=== PATIENT | female | born 1985 | race Caucasian/White ===

== ENCOUNTER 2018-01-25 01:45 | Outpatient (CLI) | payer MEDICAID | END 2018-01-25 23:59 | disposition home or self-care (01) | LOC: DIABETIC 01:45 | PROVIDERS: ATTEND Surgery | DX: Z71.3 Dietary counseling and surveillance (principal); E66.9 Obesity, unspecified | CPT/HCPCS: 97802 ==

== ENCOUNTER 2018-03-06 02:00 | Outpatient (CLI) | payer MEDICAID | END 2018-03-06 23:59 | disposition home or self-care (01) | LOC: DIABETIC 02:00 | PROVIDERS: ATTEND Surgery | DX: E66.01 Morbid (severe) obesity due to excess calories (principal); I10 Essential (primary) hypertension; K21.9 Gastro-esophageal reflux disease without esophagitis | CPT/HCPCS: 97802 ==

== ENCOUNTER 2018-03-15 00:11 | Outpatient (CLI) | payer MEDICAID | END 2018-03-15 23:59 | disposition home or self-care (01) | LOC: DIABETIC 00:11 | PROVIDERS: ATTEND Surgery | DX: E66.01 Morbid (severe) obesity due to excess calories (principal); I10 Essential (primary) hypertension | CPT/HCPCS: 97802 ==